=== PATIENT | female | born 1940 | race Caucasian/White ===

== ENCOUNTER 2017-02-23 22:00 | Emergency (ER) | payer MEDICARE ==
[2017-02-23] MEDS ORDERED: HYDROCODONE/APAP 5/325MG TABLET PO ONE (22:19)
--- NOTE | 2017-02-23 22:23 | Emergency Department Record ---
History of Present Illness - General Chief Complaint: Fall Injury Stated Complaint: FELL ON FRIDAY/BACK HURTS Time Seen by Provider: 02/23/17 22:18 Source: Patient Mode of Arrival: Ambulatory Limitations: No limitations - History of Present Illness Initial Comments: 76 yo female presents to ED with a CC of left hip and low back pain following a slip and fall 48 hours ago. Patient reports pain with attempting to sit, reports that she is more comfortable standing. Patient denies injury to the head, neck, or upper back. MD Complaint: Fall Onset/Timin -: Days(s) Fall From: Standing When Fall Occurred: # Days [employer] Fall Witnessed: No Place Fall Occurred: Home Loss of Consciousness: None Prolonged Down Time?: No Symptoms Prior to Fall: None Location: Back, Pelvis Severity: Mild Severity scale (1-10): 8 Quality: Aching Context: Tripped/slipped Associated Symptoms: Denies - Jeffry Coma Scale Eye Response: (4) Open spontaneously Motor Response: (6) Obeys commands Verbal Response: (5) Oriented [place] Total: 15 - Related Data Previous Rx's Medication Instructions Recorded Hydrocodone/Acetaminophen [[place] 1 each PO Q6H PRN #15 tablet 02/24/17 5-325 Tablet] Allergies Allergy/AdvReac Type Severity Reaction Status Date / Time No Known Drug Allergies Allergy Verified 02/23/17 22:06 Travel Screening - Travel/Exposure Within Last 30 Days Have you traveled within the last 30 days?: No - Travel/Exposure Within Last Year Have you traveled outside the [place] in the last year?: No - Additonal Travel Details Have you been exposed to anyone with a communicable illness?: No - Travel Symptoms Symptom Screening: None Review of Systems Constitutional: Denies: Chills, Fever, Malaise, Night sweats Eyes: Denies: Eye discharge, Eye pain ENT: Denies: Congestion, Ear pain, Epistaxis Respiratory: Denies: Cough, Dyspnea Cardiovascular: Denies: Chest pain, Dyspnea on exertion Endocrine: Denies: Fatigue, Heat or cold intolerance Gastrointestinal: Denies: Abdominal pain, Nausea, Vomiting Genitourinary: Denies: Incontinence, Retention Musculoskeletal: Reports: Arthralgia, Back pain. Denies: Gout, Joint swelling Skin: Reports: Bruising (over the left hip). Denies: Change in color, Change in hair/nails Neurological: Denies: Abnormal gait, Confusion, Headache, Seizure Psychiatric: Denies: Anxiety Hematological/Lymphatic: Denies: Anemia, Blood Clots Past Medical History - SOCIAL HISTORY Smoking Status: Never smoker Alcohol Use: Heavy Alcohol Use Comment: nightly Drug Use: None - RESPIRATORY Hx Respiratory Disorders: No - CARDIOVASCULAR Hx Cardio Disorders: No - NEURO Hx Neuro Disorders: No - GI Hx GI Disorders: No - Hx Genitourinary Disorders: No - ENDOCRINE Hx Endocrine Disorders: No - MUSCULOSKELETAL Hx Musculoskeletal Disorders: No - PSYCH Hx Psych Problems: No - HEMATOLOGY/ONCOLOGY Hx Hematology/Oncology Disorders: Yes Hx Cancer: Yes (skin) Hx Chemotherapy: No Hx Radiation Therapy: No Family Medical History Any Significant Family History?: No Physical Exam - General General Appearance: Alert, Oriented x3, Cooperative, Moderate distress Limitations: No limitations - Head Head exam: Atraumatic, Normocephalic, Normal inspection Head exam detail: negative: Abrasion, Contusion, Schroeder's sign, General tenderness, Hematoma, Laceration - Eye Eye exam: Normal appearance. negative: Conjunctival injection, Periorbital swelling, Periorbital tenderness, Scleral icterus - ENT Ear exam: negative: Auricular hematoma, Auricular trauma Nasal Exam: negative: Active bleeding, Discharge, Dried blood, Foreign body Mouth exam: negative: Drooling, Laceration, Tongue elevation - Neck Neck exam: Normal inspection. negative: Meningismus, Tenderness - Respiratory Respiratory exam: Normal lung sounds bilaterally. negative: Rales, Respiratory distress, Rhonchi, Stridor - Cardiovascular Cardiovascular Exam: Regular rate, Normal rhythm, Normal heart sounds - GI/Abdominal GI/Abdominal exam: Soft. negative: Rebound, Rigid, Tenderness - Rectal Rectal exam: Deferred - exam: Deferred - Extremities Extremities exam: Tenderness, Other (Mild TTP over the left hip). negative: Calf tenderness, Pedal edema - Back Back exam: Reports: Paraspinal tenderness (TTP along the left lower lumbar spine region). Denies: CVA tenderness (R), CVA tenderness (L) - Neurological Neurological exam: Alert, Normal gait, Oriented X3 - Psychiatric Psychiatric exam: Normal affect, Normal mood - Skin Skin exam: Normal color. negative: Abrasion Type of lesion: negative: abrasion Course Vital Signs 02/23/17 22:05 Temperature 97.8 F Pulse Rate 90 Respiratory 17 Rate Blood Pressure 135/87 Pulse Ox 98 - Reevaluation(s) Reevaluation #1: 02/24/17 00:31 Patient reassessed and reports improvement in her pain symptoms following [place] administration. Awaiting CT imaging read. Reevaluation #2: 02/24/17 00:40 CT Lumbar Spine: No fracture, multi-level DDD. CT Pelvis: No fracture Patient was updated on all results and appears stable for discharge at this time. Disposition Disposition: Discharge Clinical Impression: Fall Qualifiers: Encounter type: initial encounter Qualified Code(s): W19.XXXA - Unspecified fall, initial encounter Contusion of lower back Qualifiers: Encounter type: initial encounter Qualified Code(s): S30.0XXA - Contusion of lower back and pelvis, initial encounter Disposition: Home, Self-Care Condition: (2) Stable Instructions: Contusion in Adults (ED) Additional Instructions: Return to ED if your symptoms worsen or if you have any concerns. Follow-up with your family doctor in 3-5 days as directed. Prescriptions: Hydrocodone/Acetaminophen [[place] 5-325 Tablet] 1 each PO Q6H PRN #15 tablet PRN Reason: Pain - Moderate (5-7) Forms: Patient Portal Access Time of Disposition: 00:42 Quality - Quality Measures Quality Measures: N/A - Blood Pressure Screening Blood Pressure Classification: Pre-Hypertensive BP Reading Systolic Measurement: 135 Diastolic Measurement: 87 Screening for High Blood Pressure: < Pre-Hypertensive BP, F/U Documented > [ [id number]] Pre-Hypertensive Follow-up Interventions: Referral to alternative/primary care provider.
--- NOTE | 2017-02-25 10:30 | CT SCAN REPORT ---
EXAM: PELVIS CT WITH TWO DIMENSIONAL REFORMATS HISTORY: FALL. LEFT HIP CONTUSION AND PAIN. TECHNIQUE: Contiguous axial images from the L4 level to the proximal femora were obtained without contrast. Sagittal and coronal two dimensional reformatted images were obtained for better anatomic delineation. Comparison: None. FINDINGS: The sacrum is intact. Mild osteoarthritic change of the inferior sacroiliac joints with subcortical sclerosis and cysts. Tiny marginal osteophytes at the femoroacetabular joints bilaterally. No acute fracture or dislocation. The pubic rami and ischia are intact. The visceral pelvis demonstrates moderate aortic calcification. IMPRESSION: 1. NO ACUTE FRACTURE OF THE PELVIS IDENTIFIED. 2. MILD OSTEOARTHRITIC CHANGE OF THE SACROILIAC JOINTS AND FEMOROACETABULAR JOINTS. JOB NUMBER: [id number] MTDD
--- NOTE | 2017-02-25 10:58 | CT SCAN REPORT ---
EXAM: LUMBAR SPINE CT WITH TWO DIMENSIONAL REFORMATS HISTORY: FALL, LUMBAR INJURY AND PAIN. TECHNIQUE: Contiguous axial images from the T12 level to the S2 level were obtained without contrast. Sagittal and coronal two dimensional reformatted images were obtained for anatomic delineation. Comparison: None. FINDINGS: Five lumbar segments with a few degrees of dextroconvex curvature of the lumbar spine. Minimal degenerative disk disease at L2-L3 with slight disk space narrowing and small end plate osteophytes. No acute fracture or subluxation. At the L1-L2 and L2-L3 levels: No central canal or neural foraminal stenosis. At the L3-L4 level: No central canal stenosis. There is moderate left and mild right facet arthropathy. No central canal or neural foraminal stenosis. At the L4-L5 level: No disk protrusion. Advanced facet arthropathy. No central canal or neural foraminal stenosis. At the L5-S1 level: Unremarkable. The visualized retroperitoneum demonstrates mild to moderate aortic calcification. Mild osteoarthritic change of the sacroiliac joints. IMPRESSION: 1. NO ACUTE PROCESS OF THE LUMBAR SPINE IDENTIFIED. 2. MILD DEGENERATIVE DISK DISEASE AT L2-L3. 3. FACET ARTHROPATHY MOST PRONOUNCED AT L4-L5. JOB NUMBER: [id number] MTDD
== END 2017-02-24 00:48 | disposition home or self-care (01) ==
LOC: ER 22:00
DX: S30.0XXA Contusion of lower back and pelvis, initial encounter (principal); M25.552 Pain in left hip; W01.0XXA Fall on same level from slipping, tripping and stumbling without subsequent striking against object, initial encounter; Y92.009 Unspecified place in unspecified non-institutional (private) residence as the place of occurrence of the external cause
CPT/HCPCS: 72131; 72192; 99283; 99284

== ENCOUNTER 2017-05-19 06:47 | Day surgery (SDC) | payer MEDICARE ==
[~2017-05-19 06:47] MED LIST: ACETAMINOPHEN 1,000 MG/100 ML BTL IV ONE; FAMOTIDINE 20MG TABLET PO ONE; MECLIZINE 25 MG TABLET PO ONE; METOCLOPRAMIDE 10 MG TABLET PO ONE
[2017-05-19] MEDS ORDERED: PROPOFOL 10 MG/ML VIAL IV ONE (06:48)
[2017-05-19] MEDS ORDERED: HYDROCODONE/APAP 5/325MG TABLET PO ONE (06:48)
[2017-05-19] MEDS ORDERED: BUPIVACAINE 0.25% W/EPI MPF 30ML VIAL IVP ONE (06:48)
[2017-05-19] MEDS ORDERED: FENTANYL PF 100MCG/2ML VIAL IV ONE (06:48)
[2017-05-19] MEDS ORDERED: LIDOCAINE 2% MDV (20MG/ML) 20ML VIAL IV ONE (06:48)
[2017-05-19] MEDS ORDERED: ONDANSETRON HCL IV 4 MG/2 ML VIAL IVP ONE (06:48)
[2017-05-19] MEDS ORDERED: SEVOFLURANE 250 ML INH ONE (06:48)
[2017-05-19] MEDS ORDERED: DEXAMETHASONE 4 MG/ML 1ML VIAL IVP ONE (06:48)
[2017-05-19] MEDS ORDERED: ROCURONIUM BROMIDE 50MG/5ML VIAL IV ONE (06:48)
--- NOTE | 2017-05-19 15:30 | Operative Note ---
DATE OF SURGERY: 05/19/2017 Surgeon: Tom Marsh DO PREOPERATIVE DIAGNOSIS: Cholelithiasis with chronic cholecystitis. POSTOPERATIVE DIAGNOSIS: Acute on chronic cholecystitis with gallbladder hydrops. OPERATION: Cholecystectomy. Indication: The patient is a 76-year-old female who is having ongoing right subcostal postprandial pain. Imaging studies did reveal a thickened gallbladder. She had symptoms of recurrent biliary colic. We did discuss cholecystectomy. Risks include but are not limited to bleeding, infection, ductal injury, possible conversion to open, postoperative bile leak. She understood this fully. PROCEDURE: Therefore, after consent was signed and questions answered, the patient was taken to the operating room and placed in a supine position. General anesthesia was administered per the department of anesthesia. The patient's abdomen was prepped and draped in the usual fashion. Supraumbilical region was selected due to the fact she did have an umbilical hernia repair. A 2 cm incision was made. This was carried down to the anterior rectus fascia. This was incised. Sonu clamps placed on the fascial edges and brought up in to the wound. Stay sutures of 0 Vicryl placed. The posterior rectus sheath was identified and incised. The peritoneal cavity was entered bluntly. At this time a 10 mm blunt [place] port was placed and adequate pneumoperitoneum was established. Under direct visualization, additional 5 mm epigastric and two 5 mm right subcostal ports were placed. The patient was then rotated into reverse Trendelenburg with rotation to left. The gallbladder was identified. It was noted to be very thickened and fibrotic. We did use traumatic grasper and able to grasp the gallbladder. When this was retracted over the liver, this did rupture, draining clear bile consistent with gallbladder hydrops. This was suctioned free. Further cephalad and lateral retraction was applied. The hepatocystic triangle was thoroughly dissected out. There was no aberrant anatomy, no posterior ductal structures. We did release the distal half of the gallbladder from the cystic plate enlarging the retrocystic window. Each structure was circumferentially dissected out in a 360-degree fashion. There was an excellent critical view of safety. The cystic artery was taken down with the Benjamin harmonic. The cystic duct was triply clipped and cut in a standard fashion. Gallbladder was then taken off the liver bed with Benjamin harmonic. This was placed in an EndoCatch bag and brought out infraumbilically. Right upper quadrant was irrigated with approximately 1 liter of normal saline and aspirated until clear. The right upper quadrant was rechecked. There was no bleeding noted. No bile leak noted. No bowel injury noted. The patient was leveled out. The pneumoperitoneum was released. All ports were removed. The fascia was closed with 0 Vicryl in a [id number] fashion. The skin of all ports was closed with 4-0 Vicryl. She was taken to the recovery room in satisfactory condition. FINDINGS AT THE TIME OF SURGERY: Acute on chronic cholecystitis, gallbladder hydrops. CC: Dr. Ho RIVAS
== END 2017-05-19 10:55 | disposition home or self-care (01) ==
LOC: SUR 06:47
PROVIDERS: ATTEND Surgery
DX: K80.10 Calculus of gallbladder with chronic cholecystitis without obstruction (principal)
CPT/HCPCS: J2405